=== PATIENT | female | born 1965 | race Caucasian/White ===

== ENCOUNTER 2016-09-11 07:44 | Emergency (ER) | payer BC ==
[~2016-09-11] VITALS: Ht 157.4 cm; Wt 61.2 kg
[~2016-09-11 07:44] MED LIST: AUGMENTIN 875 M1 TAB PO; CLARITIN10 MG PO; CLEOCIN150 MG PO; FLONASE0.05 MG/AC NS; Fioricet 325 MG1 TAB PO; SUDAFED30 MG PO; TRAMADOL HCL50 MG PO
[2016-09-11 07:52] VITALS: BP 139/81
[2016-09-11] MEDS ORDERED: SYNTHROID,LEVO75 MCG PO (07:53)
[2016-09-11 08:28] LABS: BASO % 0.3 % (0.0-1.0); EOS % 0.3 % (1.0-4.0); HEMATOCRIT 37.1 % (37.0-47.0); HEMOGLOBIN 12.4 g/dl (12.0-16.0); LYMPH # 1.1 10*3/uL (1.3-4.4); LYMPH % 35.7 % (27.0-41.0); MEAN CELL VOLUME 92.3 fl (81.0-99.0); MEAN CORPUSCULAR HGB 30.8 pg (27.0-31.0); MEAN CORPUSCULAR HGB CONC 33.4 g/dl (33.0-37.0); MEAN PLATELET VOLUME 9.8 fl (9.6-12.3); MONO # 0.5 10*3/uL (0.1-1.0); MONO % 17.3 % (3.0-9.0); NEUT # 1.4 10*3/uL (2.3-7.9); NEUT % 46.1 % (47.0-73.0); PLATELET COUNT AUTOMATED 185 10*3/uL (130-400); RED BLOOD COUNT 4.02 10*6/uL (4.10-5.10); RED CELL DISTRI WIDTH 13.1 % (0-14.5)
[2016-09-11 08:37] LABS: INTERNATIONAL NORM RATIO 0.9 (2.0-3.5); PROTHROMBIN TIME 9.6 SECONDS (9.0-12.4)
[2016-09-11 08:44] LABS: ALBUMIN 3.4 gm/dl (3.1-4.5); ALKALINE PHOSPHATASE 75 U/L (45-117); BILIRUBIN, TOTAL 0.2 mg/dl (0.2-1.0); BUN 16 mg/dl (7-24); C-REACTIVE PROTEIN 1.61 MG/DL (0-0.3); CARBON DIOXIDE 25 mmol/L (21-32); CHLORIDE 108 mmol/L (98-107); CPK 46 U/L (26-192); EST GLOM FILT AFRICAN AMERICAN > 60 ml/min; GLUCOSE 83 mg/dL (65-99); MAGNESIUM 2.1 mg/dL (1.5-2.1); POTASSIUM 4.3 mmol/L (3.5-5.1); SGOT/AST 15 IU/L (3-35); SGPT/ALT 15 U/L (12-78); SODIUM 142 mmol/L (136-145); TOTAL PROTEIN 6.7 gm/dL (6.4-8.2)
[2016-09-11 08:46] LABS: CKMB < 0.5 ng/ml (0.5-3.6); TROPONIN I < 0.015 ng/ml (<0.045)
[2016-09-11] MEDS ORDERED: ZITHROMAX250 MG PO ×2 (11:57→11:59)
[2016-09-11] MEDS ORDERED: PREDNISONE50 MG PO ×2 (11:57→11:59)
== END 2016-09-11 12:08 | disposition home or self-care (01) ==
LOC: ED 07:44
PROVIDERS: Emergency Medicine
DX: J20.9 Acute bronchitis, unspecified (principal); J01.90 Acute sinusitis, unspecified; Z79.899 Other long term (current) drug therapy

== ENCOUNTER 2018-07-12 14:56 | Emergency (ER) | payer SELFPAY ==
[~2018-07-12] VITALS: Ht 154.9 cm; Wt 65.8 kg
[~2018-07-12 14:56] MED LIST changes: +PREDNISONE50 MG PO; +SYNTHROID,LEVO75 MCG PO; +ZITHROMAX250 MG PO
[2018-07-12 14:59] VITALS: BP 150/69
[2018-07-12 16:05] LABS: BASO % 0.6 % (0.0-1.0); EOS # 0.1 10*3/uL (0.0-0.4); EOS % 1.7 % (1.0-4.0); HEMATOCRIT 36.2 % (37.0-47.0); HEMOGLOBIN 12.1 g/dl (12.0-16.0); LYMPH # 2.4 10*3/uL (1.3-4.4); LYMPH % 32.7 % (27.0-41.0); MEAN CORPUSCULAR HGB 32.1 pg (27.0-31.0); MEAN CORPUSCULAR HGB CONC 33.4 g/dl (33.0-37.0); MONO # 0.9 10*3/uL (0.1-1.0); MONO % 11.7 % (3.0-9.0); NEUT # 3.9 10*3/uL (2.3-7.9); NEUT % 52.9 % (47.0-73.0); PLATELET COUNT AUTOMATED 315 10*3/uL (130-400); RED BLOOD COUNT 3.77 10*6/uL (4.10-5.10); RED CELL DISTRI WIDTH 12.7 % (0-14.5); WHITE BLOOD COUNT 7.3 10*3/uL (4.8-10.8)
[2018-07-12 16:25] LABS: ALBUMIN 3.9 gm/dl (3.1-4.5); ALKALINE PHOSPHATASE 93 U/L (45-117); BUN 26 mg/dl (7-24); CHLORIDE 108 mmol/L (98-107); CREATININE 1.02 mg/dL (0.55-1.02); POTASSIUM 4.2 mmol/L (3.5-5.1); SGOT/AST 11 IU/L (3-35); SGPT/ALT 19 U/L (12-78); SODIUM 139 mmol/L (136-145); TOTAL PROTEIN 7.1 gm/dL (6.4-8.2)
[2018-07-12] MEDS ORDERED: CLARITIN10 MG PO (16:40)
[2018-07-12] MEDS ORDERED: PREDNISONE10 MG PO (16:40)
[2018-07-12] MEDS ORDERED: FLONASE ALLERG9.9 ML NAS (16:40)
== END 2018-07-12 16:55 | disposition home or self-care (01) ==
LOC: ED 14:56
PROVIDERS: Nurse Practitioner Family
DX: B34.9 Viral infection, unspecified (principal); R03.0 Elevated blood-pressure reading, without diagnosis of hypertension; Z79.2 Long term (current) use of antibiotics; Z79.899 Other long term (current) drug therapy

== ENCOUNTER → 2020-06-07 | Outpatient (CLI) | payer OTHER ==
[~2020-06-07] MED LIST changes: +FLONASE ALLERG9.9 ML NAS; +PREDNISONE10 MG PO
== END | disposition home or self-care (01) ==
LOC: MAMMO 07:49
PROVIDERS: ATTEND Nurse Practitioner Women's Health
DX: Z12.31 Encounter for screening mammogram for malignant neoplasm of breast (principal); N64.89 Other specified disorders of breast

== ENCOUNTER 2021-01-12 09:45 | Emergency (ER) | payer OTHER ==
[~2021-01-12] VITALS: Ht 1554 cm; Wt 68.0 kg
[2021-01-12 09:51] VITALS: BP 128/76
[2021-01-12 10:35] LABS: BASO # 0.1 10*3/uL (0.0-0.1); BASO % 1.1 % (0.0-1.0); EOS # 0.1 10*3/uL (0.0-0.4); EOS % 1.3 % (1.0-4.0); HEMATOCRIT 37.7 % (37.0-47.0); LYMPH # 1.2 10*3/uL (1.3-4.4); LYMPH % 17.4 % (27.0-41.0); MEAN CELL VOLUME 95.9 fl (81.0-99.0); MEAN CORPUSCULAR HGB 31.8 pg (27.0-31.0); MEAN CORPUSCULAR HGB CONC 33.2 g/dl (33.0-37.0); MEAN PLATELET VOLUME 9.7 fl (9.6-12.3); MONO # 0.8 10*3/uL (0.1-1.0); MONO % 11.4 % (3.0-9.0); NEUT # 4.9 10*3/uL (2.3-7.9); NEUT % 68.4 % (47.0-73.0); PLATELET COUNT AUTOMATED 285 10*3/uL (130-400); RED BLOOD COUNT 3.93 10*6/uL (4.10-5.10); RED CELL DISTRI WIDTH 12.5 % (0-14.5); WHITE BLOOD COUNT 7.1 10*3/uL (4.8-10.8)
[2021-01-12 10:52] LABS: ALBUMIN 3.2 gm/dl (3.1-4.5); ALKALINE PHOSPHATASE 97 U/L (45-117); BUN 20 mg/dl (7-24); CHLORIDE 108 mmol/L (98-107); CREATININE 1.02 mg/dL (0.55-1.02); POTASSIUM 4.6 mmol/L (3.5-5.1); SGOT/AST 10 IU/L (3-35); SGPT/ALT 19 U/L (12-78); SODIUM 139 mmol/L (136-145); TOTAL PROTEIN 6.5 gm/dL (6.4-8.2)
[2021-01-12 10:53] LABS: TROPONIN I < 0.015 ng/ml (<0.045)
== END 2021-01-12 12:04 | disposition home or self-care (01) ==
LOC: ED 09:45
PROVIDERS: Emergency Medicine
DX: R00.2 Palpitations (principal)

== ENCOUNTER → 2021-05-03 | Outpatient (CLI) | payer OTHER | END | disposition home or self-care (01) | LOC: MAMMO 13:07 | PROVIDERS: ATTEND Nurse Practitioner Family | DX: N63.21 Unspecified lump in the left breast, upper outer quadrant (principal) ==

== ENCOUNTER → 2022-05-04 | Outpatient (CLI) | payer OTHER | END | disposition home or self-care (01) | LOC: MAMMO 09:46 | PROVIDERS: ATTEND Nurse Practitioner Family | DX: R92.2 Inconclusive mammogram (principal) ==

== ENCOUNTER 2023-04-09 06:04 | Emergency (ER) | payer OTHER ==
[~2023-04-09] VITALS: Ht 165.1 cm; Wt 77.1 kg
== END 2023-04-09 06:51 | disposition home or self-care (01) ==
LOC: ED 06:04
DX: S83.91XA Sprain of unspecified site of right knee, initial encounter (principal); E78.5 Hyperlipidemia, unspecified; Z98.51 Tubal ligation status; Z98.890 Other specified postprocedural states; W11.XXXA Fall on and from ladder, initial encounter; Y93.89 Activity, other specified; Y92.89 Other specified places as the place of occurrence of the external cause; Y99.8 Other external cause status

== ENCOUNTER → 2023-06-06 | Outpatient (CLI) | payer OTHER | END | disposition home or self-care (01) | LOC: MAMMO 07:28 | PROVIDERS: ATTEND Nurse Practitioner Family | DX: R92.1 Mammographic calcification found on diagnostic imaging of breast (principal) ==

== ENCOUNTER → 2024-12-01 | Outpatient (CLI) | payer OTHER | END | disposition home or self-care (01) | LOC: MAMMO 09:50 | PROVIDERS: ATTEND Nurse Practitioner Women's Health | DX: Z12.31 Encounter for screening mammogram for malignant neoplasm of breast (principal); R92.333 Mammographic heterogeneous density, bilateral breasts; E78.5 Hyperlipidemia, unspecified ==